=== PATIENT | male | born 1965 | race African-American/Black ===

== ENCOUNTER 2020-02-25 15:55 | Emergency (ER) | payer MEDICARE, SELFPAY ==
[2020-02-25 16:29] VITALS: BP 154/105; PULSE 57; RESP 16; TEMP 36.9; O2SAT 100
--- NOTE | 2020-02-25 16:41 | ED.GENADULT ---
HPI - General Adult General Chief complaint: Unspecified Stated complaint: High pressure Time Seen by Provider: 02/25/20 16:41 Source: patient, family (mother) and RN notes reviewed Mode of arrival: ambulatory Limitations: no limitations History of Present Illness HPI narrative: 54-year-old -Thai male presents with complains of needing routine medication (metformin and triamterene-hydrochlorothiazide) refill due to him being out of town and missing routine appointment and office refusing to refill medication until he visit office. Denies hyperglycemia signs or symptoms (increase urination, dry mouth, increase thirst, blurred vision, trouble concentrating) at this time. Denies fever or chills. Denies diarrhea, nausea, vomiting, and abdominal pain. Denies blood glucose or blood pressure being elevated today. Tolerating po intake well. Denies headaches, weakness, fatigue, or myalgia. Denies chest pain or dyspnea. Denies cough, rhinorrhea, congestion, sore throat. Denies recent traveling. Denies concerns for COVID-19 or exposures been home with limited outdoor exposure except for essential household needs, work, and return home. At this time, patient is not suspected of having COVID-19. Some parts of this dictation were generated by voice recognition software and may contain typographical and/or grammatical inaccuracies. Related Data Home Medications Medication Instructions Recorded Confirmed cholesterol 02/25/20 hydrochlorothiazide 02/25/20 metformin 02/25/20 Allergies Allergy/AdvReac Type Severity Reaction Status Date / Time No Known Allergies Allergy Verified 02/25/20 16:31 Review of Systems Review of Systems: Narrative: CONSTITUTIONAL: Denies fever, chills, sweats. Needing medications refilled. EYES: Denies visual changes, redness, discharge. ENT: Denies rhinorrhea, congestion, sore throat, otalgia. CARDIOVASCULAR: Denies chest pain, palpitations, edema. RESPIRATORY: Denies dyspnea, wheezing, cough. GASTROINTESTINAL: Denies abdominal pain, nausea, vomiting, diarrhea. GENITOURINARY: Denies dysuria, hematuria, abnormal discharge. SKIN: Denies rash or itching. MUSCULOSKELETAL: Denies acute back pain, joint pain, or myalgia. NEUROLOGIC: Denies numbness or focal weakness. PSYCHIATRIC: Denies anxiety or depression. All other systems reviewed are negative, except as documented in HPI and below. [facility] Past Medical History Medical History (Updated 02/26/20 @ 00:00 by Marta Jackson) Diabetes Hypercholesteremia Hypertension Leg fracture, right Surgery Surgical History Surgical History (Updated 02/25/20 @ 16:56 by VIDHYA Garcia) History of surgery on left wrist Family History Family History (Updated 03/03/20 @ 17:25 by VIDHYA Garcia) Father Diabetes mellitus Mother Hypertension Social History Social History (Updated 02/25/20 @ 16:56 by VIDHYA Garcia) Smoking status: Never smoker Tobacco type: cigarettes Second hand tobacco smoke exposure: No Alcohol intake: former Alcohol use details: Quit years ago Substance use: never Living arrangements: with family Occupation/Education: occupation Gender identity (if verbalized by the patient): Male Sexual Orientation (if Verbalized by the Patient): Straight or Heterosexual Comments At time of signature, agree with nurse past medical, surgical, social, and family history. There is relevant patient's past medical history pertinent to the presenting complaint, no relevant family history pertinent to the presenting complaint. Exam Narrative: Exam Narrative: GENERAL: This is a well-nourished, well-developed patient, in no apparent distress. Talks in full sentences and ambulates with steady gait without dyspnea. HEAD: normocephalic, atraumatic. EYES: PERRL. Sclera clear/white. Vision is grossly intact. EARS: External ears normal, auditory canals clear and without drainage, TMs
[2020-02-25 17:12] VITALS: BP 150/100
== END 2020-02-25 17:14 | disposition home or self-care (01) ==
PROVIDERS: Emergency Provider Nurse Practitioner Family
DX: E11.9 Type 2 diabetes mellitus without complications (principal); I10 Essential (primary) hypertension; E78.00 Pure hypercholesterolemia, unspecified; Z79.84 Long term (current) use of oral hypoglycemic drugs
CPT/HCPCS: 99201; G0463